=== PATIENT | male | born 1945 | race Caucasian/White ===

== ENCOUNTER → 2016-06-15 | Outpatient (CLI) | payer MEDICARE, MEDICAID ==
[~2016-06-15] MED LIST: ASPI81 PO; DOXY100C PO; IBUP-2070 PO; INSLAN SQ; LEVO500 PO; LINE600 PO; LISI40TA4 PO; METF850T2 PO; PERCT PO; SIMV-260 PO; TEST75GE TP
[2016-06-15 13:52] VITALS: BP 152/60
== END | disposition home or self-care (01) ==
LOC: HBOWC 13:08
PROVIDERS: ATTEND Emergency Medicine
DX: E11.621 Type 2 diabetes mellitus with foot ulcer (principal); L97.519 Non-pressure chronic ulcer of other part of right foot with unspecified severity; M85.871 Other specified disorders of bone density and structure, right ankle and foot; M54.5 Low back pain; M79.641 Pain in right hand; M25.571 Pain in right ankle and joints of right foot; Z87.81 Personal history of (healed) traumatic fracture
CPT/HCPCS: 87070; 87205

== ENCOUNTER → 2016-06-23 | Outpatient (CLI) | payer MEDICARE, MEDICAID ==
[2016-06-23 09:23] VITALS: BP 144/64
== END | disposition home or self-care (01) ==
LOC: HBOWC 09:12
PROVIDERS: ATTEND Emergency Medicine
DX: E11.621 Type 2 diabetes mellitus with foot ulcer (principal); L97.511 Non-pressure chronic ulcer of other part of right foot limited to breakdown of skin; E11.42 Type 2 diabetes mellitus with diabetic polyneuropathy; L84 Corns and callosities; Q66.7 Congenital pes cavus; M20.42 Other hammer toe(s) (acquired), left foot; M20.41 Other hammer toe(s) (acquired), right foot
CPT/HCPCS: 87070; 87147; 87205; 97597

== ENCOUNTER → 2016-07-07 | Outpatient (CLI) | payer MEDICARE, MEDICAID ==
[~2016-07-07] MED LIST changes: -DOXY100C PO
[2016-07-07 13:48] VITALS: BP 162/72
== END | disposition home or self-care (01) ==
LOC: HBOWC 13:16
PROVIDERS: ATTEND Emergency Medicine
DX: E11.621 Type 2 diabetes mellitus with foot ulcer (principal); L97.511 Non-pressure chronic ulcer of other part of right foot limited to breakdown of skin; E11.42 Type 2 diabetes mellitus with diabetic polyneuropathy; M20.42 Other hammer toe(s) (acquired), left foot; M20.41 Other hammer toe(s) (acquired), right foot; L84 Corns and callosities
CPT/HCPCS: 97597

== ENCOUNTER → 2016-07-20 | Outpatient (CLI) | payer MEDICARE, MEDICAID ==
[~2016-07-20] MED LIST changes: +IBUPROFEN 200 MG TABLET PO ONE; +LIDOCAINE HCL 2% 5 ML JELLY TP ONE
[2016-07-20 14:45] VITALS: BP 139/64
== END | disposition home or self-care (01) ==
LOC: HBOWC 14:14
PROVIDERS: ATTEND Emergency Medicine
DX: E11.621 Type 2 diabetes mellitus with foot ulcer (principal); L97.511 Non-pressure chronic ulcer of other part of right foot limited to breakdown of skin; L84 Corns and callosities; M20.42 Other hammer toe(s) (acquired), left foot; M20.41 Other hammer toe(s) (acquired), right foot; E11.42 Type 2 diabetes mellitus with diabetic polyneuropathy; Q66.7 Congenital pes cavus
CPT/HCPCS: 97597

== ENCOUNTER → 2016-08-03 | Outpatient (CLI) | payer MEDICARE, MEDICAID ==
[~2016-08-03] MED LIST changes: -ASPI81 PO; -IBUPROFEN 200 MG TABLET PO ONE; -LIDOCAINE HCL 2% 5 ML JELLY TP ONE; -LINE600 PO; -SIMV-260 PO; +SIMV20 PO
[2016-08-03 14:44] VITALS: BP 145/64
== END | disposition home or self-care (01) ==
LOC: HBOWC 14:08
PROVIDERS: ATTEND Emergency Medicine
DX: E11.621 Type 2 diabetes mellitus with foot ulcer (principal); L97.511 Non-pressure chronic ulcer of other part of right foot limited to breakdown of skin; L84 Corns and callosities; M20.42 Other hammer toe(s) (acquired), left foot; M20.41 Other hammer toe(s) (acquired), right foot; E11.42 Type 2 diabetes mellitus with diabetic polyneuropathy
CPT/HCPCS: 87070; 87205; 97597

== ENCOUNTER → 2016-08-18 | Outpatient (CLI) | payer MEDICARE, MEDICAID ==
[2016-08-18 14:26] VITALS: BP 155/66
== END | disposition home or self-care (01) ==
LOC: HBOWC 14:04
PROVIDERS: ATTEND Emergency Medicine Undersea and Hyperbaric Medicine
DX: E11.621 Type 2 diabetes mellitus with foot ulcer (principal); L97.511 Non-pressure chronic ulcer of other part of right foot limited to breakdown of skin; E11.42 Type 2 diabetes mellitus with diabetic polyneuropathy; L84 Corns and callosities; M20.42 Other hammer toe(s) (acquired), left foot; M20.41 Other hammer toe(s) (acquired), right foot; Q66.7 Congenital pes cavus
CPT/HCPCS: 97597

== ENCOUNTER → 2016-09-01 | Outpatient (CLI) | payer MEDICARE, MEDICAID ==
[2016-09-01 14:21] VITALS: BP 138/56
== END | disposition home or self-care (01) ==
LOC: HBOWC 14:08
PROVIDERS: ATTEND Emergency Medicine
DX: E11.621 Type 2 diabetes mellitus with foot ulcer (principal); L97.511 Non-pressure chronic ulcer of other part of right foot limited to breakdown of skin; M20.42 Other hammer toe(s) (acquired), left foot; M20.41 Other hammer toe(s) (acquired), right foot; E11.40 Type 2 diabetes mellitus with diabetic neuropathy, unspecified; L84 Corns and callosities; Q66.7 Congenital pes cavus
CPT/HCPCS: 97597

== ENCOUNTER → 2016-09-18 | Outpatient (CLI) | payer MEDICARE, MEDICAID ==
[2016-09-18 08:13] VITALS: BP 154/71
== END | disposition home or self-care (01) ==
LOC: HBOWC 08:05
PROVIDERS: ATTEND Emergency Medicine
DX: E11.621 Type 2 diabetes mellitus with foot ulcer (principal); L97.511 Non-pressure chronic ulcer of other part of right foot limited to breakdown of skin; L84 Corns and callosities; M19.042 Primary osteoarthritis, left hand; M19.041 Primary osteoarthritis, right hand; E11.42 Type 2 diabetes mellitus with diabetic polyneuropathy; B35.1 Tinea unguium
CPT/HCPCS: 87070; 87205; 97597

== ENCOUNTER → 2016-09-18 | Outpatient (CLI) | payer MEDICARE, MEDICAID ==
[~2016-09-18] MED LIST changes: +LINE600 PO; +SIMV-260 PO; -SIMV20 PO
== END | disposition home or self-care (01) ==
LOC: RADPV 10:24
PROVIDERS: ATTEND Specialist
DX: M47.812 Spondylosis without myelopathy or radiculopathy, cervical region (principal); M43.22 Fusion of spine, cervical region; M25.78 Osteophyte, vertebrae; M12.88 Other specific arthropathies, not elsewhere classified, other specified site; M51.34 Other intervertebral disc degeneration, thoracic region; M47.814 Spondylosis without myelopathy or radiculopathy, thoracic region; M41.84 Other forms of scoliosis, thoracic region; M19.042 Primary osteoarthritis, left hand; M19.041 Primary osteoarthritis, right hand; M85.842 Other specified disorders of bone density and structure, left hand; M85.841 Other specified disorders of bone density and structure, right hand; M41.86 Other forms of scoliosis, lumbar region; M47.816 Spondylosis without myelopathy or radiculopathy, lumbar region
CPT/HCPCS: 72040; 72072; 72100

== ENCOUNTER → 2016-10-02 | Outpatient (CLI) | payer MEDICARE, MEDICAID ==
[2016-10-02 13:59] VITALS: BP 125/63
== END | disposition home or self-care (01) ==
LOC: HBOWC 13:32
PROVIDERS: ATTEND Emergency Medicine
DX: E11.622 Type 2 diabetes mellitus with other skin ulcer (principal); L97.511 Non-pressure chronic ulcer of other part of right foot limited to breakdown of skin; L85.9 Epidermal thickening, unspecified; Q66.7 Congenital pes cavus; M20.42 Other hammer toe(s) (acquired), left foot; M20.41 Other hammer toe(s) (acquired), right foot; L84 Corns and callosities; B35.1 Tinea unguium; M79.2 Neuralgia and neuritis, unspecified; M19.042 Primary osteoarthritis, left hand; M19.041 Primary osteoarthritis, right hand; E11.42 Type 2 diabetes mellitus with diabetic polyneuropathy; Z91.19 Patient's noncompliance with other medical treatment and regimen
CPT/HCPCS: 97597

== ENCOUNTER → 2016-10-16 | Outpatient (CLI) | payer MEDICARE, MEDICAID ==
[2016-10-16 13:51] VITALS: BP 156/64
== END | disposition home or self-care (01) ==
LOC: HBOWC 12:50
PROVIDERS: ATTEND Emergency Medicine
DX: E11.621 Type 2 diabetes mellitus with foot ulcer (principal); L97.511 Non-pressure chronic ulcer of other part of right foot limited to breakdown of skin; E11.42 Type 2 diabetes mellitus with diabetic polyneuropathy; M19.072 Primary osteoarthritis, left ankle and foot; M19.071 Primary osteoarthritis, right ankle and foot; B35.1 Tinea unguium; L84 Corns and callosities
CPT/HCPCS: 87070; 87205; 97597

== ENCOUNTER → 2016-10-30 | Outpatient (CLI) | payer MEDICARE, MEDICAID ==
[~2016-10-30] MED LIST changes: -LEVO500 PO; +LIDOCAINE HCL 2% 5 ML JELLY TP ONE
[2016-10-30 14:02] VITALS: BP 132/56
== END | disposition home or self-care (01) ==
LOC: HBOWC 13:47
PROVIDERS: ATTEND Emergency Medicine Undersea and Hyperbaric Medicine
DX: E11.621 Type 2 diabetes mellitus with foot ulcer (principal); L97.511 Non-pressure chronic ulcer of other part of right foot limited to breakdown of skin; M79.2 Neuralgia and neuritis, unspecified; L84 Corns and callosities; M19.072 Primary osteoarthritis, left ankle and foot; M19.071 Primary osteoarthritis, right ankle and foot; E11.42 Type 2 diabetes mellitus with diabetic polyneuropathy; M19.042 Primary osteoarthritis, left hand; M19.041 Primary osteoarthritis, right hand; Q66.7 Congenital pes cavus; B35.1 Tinea unguium
CPT/HCPCS: 97597

== ENCOUNTER → 2016-11-15 | Outpatient (CLI) | payer MEDICARE, MEDICAID ==
[~2016-11-15] MED LIST changes: -LIDOCAINE HCL 2% 5 ML JELLY TP ONE
[2016-11-15 14:05] VITALS: BP 109/50
== END | disposition home or self-care (01) ==
LOC: HBOWC 13:36
PROVIDERS: ATTEND Emergency Medicine
DX: E11.621 Type 2 diabetes mellitus with foot ulcer (principal); L97.519 Non-pressure chronic ulcer of other part of right foot with unspecified severity; M20.41 Other hammer toe(s) (acquired), right foot
CPT/HCPCS: 87070; 87205

== ENCOUNTER → 2016-11-29 | Outpatient (CLI) | payer MEDICARE, MEDICAID ==
[~2016-11-29] MED LIST changes: +CIPR-278 PO; +LIDOCAINE HCL 2% 5 ML JELLY TP ONE; -LINE600 PO; +NYSTATIN 15 GM POWDER BOTTLE TP ONE
[2016-11-29 15:01] VITALS: BP 149/63
== END | disposition home or self-care (01) ==
LOC: HBOWC 13:51
PROVIDERS: ATTEND Emergency Medicine
DX: E11.621 Type 2 diabetes mellitus with foot ulcer (principal); L97.511 Non-pressure chronic ulcer of other part of right foot limited to breakdown of skin; E11.42 Type 2 diabetes mellitus with diabetic polyneuropathy; M19.042 Primary osteoarthritis, left hand; M19.041 Primary osteoarthritis, right hand; M19.071 Primary osteoarthritis, right ankle and foot; M19.072 Primary osteoarthritis, left ankle and foot; L84 Corns and callosities; B35.1 Tinea unguium
CPT/HCPCS: 97597

== ENCOUNTER → 2016-12-15 | Outpatient (CLI) | payer MEDICARE, MEDICAID ==
[~2016-12-15] MED LIST changes: -LIDOCAINE HCL 2% 5 ML JELLY TP ONE; -NYSTATIN 15 GM POWDER BOTTLE TP ONE
[2016-12-15 14:07] VITALS: BP 154/63
== END | disposition home or self-care (01) ==
LOC: HBOWC 13:33
PROVIDERS: ATTEND Emergency Medicine
DX: E11.621 Type 2 diabetes mellitus with foot ulcer (principal); L97.511 Non-pressure chronic ulcer of other part of right foot limited to breakdown of skin; E11.42 Type 2 diabetes mellitus with diabetic polyneuropathy; M19.072 Primary osteoarthritis, left ankle and foot; L84 Corns and callosities; B35.1 Tinea unguium
CPT/HCPCS: 97597

== ENCOUNTER → 2016-12-20 | Outpatient (CLI) | payer MEDICARE, MEDICAID ==
[2016-12-20 13:13] LABS: BASOPHILS # (AUTO) 0.02 K/uL (0.00-0.20); BASOPHILS % (AUTO) 0.3 % (0.0-2.0); EOSINOPHILS # (AUTO) 0.15 K/uL (0.00-0.70); EOSINOPHILS % (AUTO) 1.81 % (1.0-6.0); HEMATOCRIT 38.4 % (41-53); HEMOGLOBIN 12.4 g/dL (13.5-17.5); LYMPHOCYTES % (AUTO) 11.6 % (22.0-44.0); MEAN CORPUSCULAR HEMOGLOBIN 28.1 pg (26.0-34.0); MEAN CORPUSCULAR HGB CONC 32.2 G/dL (31.0-37.0); MEAN CORPUSCULAR VOLUME 87 fL (80-100); MONOCYTES # (AUTO) 0.5 K/uL (0.1-1.0); MONOCYTES % (AUTO) 6.4 % (2.0-9.0); NEUTROPHILS # (AUTO) 6.6 K/uL (1.8-7.7); NEUTROPHILS % (AUTO) 79.9 % (40.0-70.0); PLATELET COUNT (AUTO) 143 K/uL (150-450); RED BLOOD CELL COUNT(AUTO) 4.41 MIL/uL (4.50-5.90); RED CELL DISTRIBUTION WIDTH 15.3 % (11.5-14.5); WHITE BLOOD COUNT (AUTO) 8.2 K/uL (4.5-11.0)
[2016-12-20 13:24] LABS: ALBUMIN 3.6 g/dL (3.4-5.0); ANION GAP 6 mmol/L (8-16); CARBON DIOXIDE 30 mmol/L (22-29); CHLORIDE 102 mmol/L (98-107); CREATININE 1.06 mg/dL (0.60-1.30); GLOMERULAR FILTR. RATE CALC > 60 mL/min (>60); POTASSIUM 5.1 mmol/L (3.5-5.1); SODIUM SERUM 138 mmol/L (136-145); UREA NITROGEN, BLOOD 14 mg/dL (7-18)
[2016-12-20 14:02] LABS: HEMOGLOBIN A1C 7.6 % (4.5-6.2)
[2016-12-20 14:32] LABS: ERYTHROCYTE SEDIMENTATION RATE 22 MM/HR (0-15)
== END | disposition home or self-care (01) ==
LOC: LABPV 11:48
PROVIDERS: ATTEND Emergency Medicine
DX: E11.621 Type 2 diabetes mellitus with foot ulcer (principal); L97.519 Non-pressure chronic ulcer of other part of right foot with unspecified severity
CPT/HCPCS: 83036; 85651; 86140

== ENCOUNTER → 2016-12-29 | Outpatient (CLI) | payer MEDICARE, MEDICAID ==
[~2016-12-29] MED LIST changes: +CEPH500 PO
[2016-12-29 13:54] VITALS: BP 147/65
== END | disposition home or self-care (01) ==
LOC: HBOWC 13:14
PROVIDERS: ATTEND Emergency Medicine
DX: E11.621 Type 2 diabetes mellitus with foot ulcer (principal); L97.511 Non-pressure chronic ulcer of other part of right foot limited to breakdown of skin; E11.42 Type 2 diabetes mellitus with diabetic polyneuropathy; M20.41 Other hammer toe(s) (acquired), right foot; L84 Corns and callosities; M19.072 Primary osteoarthritis, left ankle and foot; M19.071 Primary osteoarthritis, right ankle and foot; B35.1 Tinea unguium
CPT/HCPCS: 87070; 87205; 97597

== ENCOUNTER → 2016-12-29 | Outpatient (CLI) | payer MEDICARE, MEDICAID ==
[~2016-12-29] MED LIST changes: -CEPH500 PO; +GADOBUTROL 1 MMOL/ML 10 ML VIAL IVP ONE
== END | disposition home or self-care (01) ==
LOC: RADMN 10:00
PROVIDERS: ATTEND Emergency Medicine
DX: E11.621 Type 2 diabetes mellitus with foot ulcer (principal); L97.319 Non-pressure chronic ulcer of right ankle with unspecified severity; R60.0 Localized edema; S93.411D Sprain of calcaneofibular ligament of right ankle, subsequent encounter; M21.961 Unspecified acquired deformity of right lower leg; M25.771 Osteophyte, right ankle; M65.871 Other synovitis and tenosynovitis, right ankle and foot; M62.571 Muscle wasting and atrophy, not elsewhere classified, right ankle and foot; M76.61 Achilles tendinitis, right leg; M77.31 Calcaneal spur, right foot; L97.519 Non-pressure chronic ulcer of other part of right foot with unspecified severity; M25.474 Effusion, right foot; M20.41 Other hammer toe(s) (acquired), right foot; X58.XXXD Exposure to other specified factors, subsequent encounter; S93.331D Other subluxation of right foot, subsequent encounter
CPT/HCPCS: 73720; 73723; A9585

== ENCOUNTER → 2017-01-16 | Outpatient (CLI) | payer MEDICARE, MEDICAID ==
[~2017-01-16] MED LIST changes: +CEPH500 PO; -CIPR-278 PO; -GADOBUTROL 1 MMOL/ML 10 ML VIAL IVP ONE
[2017-01-16 13:50] VITALS: BP 141/52
== END | disposition home or self-care (01) ==
LOC: HBOWC 13:19
PROVIDERS: ATTEND Emergency Medicine Undersea and Hyperbaric Medicine
DX: E11.621 Type 2 diabetes mellitus with foot ulcer (principal); L97.511 Non-pressure chronic ulcer of other part of right foot limited to breakdown of skin; L84 Corns and callosities; M20.41 Other hammer toe(s) (acquired), right foot; E11.42 Type 2 diabetes mellitus with diabetic polyneuropathy; M19.072 Primary osteoarthritis, left ankle and foot; M19.071 Primary osteoarthritis, right ankle and foot; B35.1 Tinea unguium
CPT/HCPCS: 97597

== ENCOUNTER → 2017-02-06 | Outpatient (CLI) | payer MEDICARE, MEDICAID ==
[~2017-02-06] MED LIST changes: +LIDOCAINE HCL 2% 5 ML JELLY TP ONE
[2017-02-06 14:15] VITALS: BP 153/82
== END | disposition home or self-care (01) ==
LOC: HBOWC 13:39
PROVIDERS: ATTEND Emergency Medicine
DX: E11.621 Type 2 diabetes mellitus with foot ulcer (principal); L97.512 Non-pressure chronic ulcer of other part of right foot with fat layer exposed; E11.42 Type 2 diabetes mellitus with diabetic polyneuropathy; E11.69 Type 2 diabetes mellitus with other specified complication; M86.671 Other chronic osteomyelitis, right ankle and foot; L84 Corns and callosities; M19.072 Primary osteoarthritis, left ankle and foot; M19.071 Primary osteoarthritis, right ankle and foot; M20.5X1 Other deformities of toe(s) (acquired), right foot
CPT/HCPCS: 11042; 85651; 86140

== ENCOUNTER → 2017-02-20 | Outpatient (CLI) | payer MEDICARE, MEDICAID ==
[2017-02-20 11:05] VITALS: BP 141/75
== END | disposition home or self-care (01) ==
LOC: HBOWC 10:49
PROVIDERS: ATTEND Emergency Medicine
DX: E11.621 Type 2 diabetes mellitus with foot ulcer (principal); L97.511 Non-pressure chronic ulcer of other part of right foot limited to breakdown of skin; E11.69 Type 2 diabetes mellitus with other specified complication; M86.8X7 Other osteomyelitis, ankle and foot; M20.5X1 Other deformities of toe(s) (acquired), right foot; E11.42 Type 2 diabetes mellitus with diabetic polyneuropathy; B35.1 Tinea unguium; L84 Corns and callosities
CPT/HCPCS: 11042

== ENCOUNTER → 2017-03-09 | Outpatient (CLI) | payer MEDICARE, MEDICAID ==
[2017-03-09 11:50] VITALS: BP 152/71
== END | disposition home or self-care (01) ==
LOC: HBOWC 11:39
PROVIDERS: ATTEND Emergency Medicine
DX: E11.621 Type 2 diabetes mellitus with foot ulcer (principal); L97.512 Non-pressure chronic ulcer of other part of right foot with fat layer exposed; E11.42 Type 2 diabetes mellitus with diabetic polyneuropathy; E11.69 Type 2 diabetes mellitus with other specified complication; M86.671 Other chronic osteomyelitis, right ankle and foot; M19.072 Primary osteoarthritis, left ankle and foot; M19.071 Primary osteoarthritis, right ankle and foot; L84 Corns and callosities; M20.5X1 Other deformities of toe(s) (acquired), right foot
CPT/HCPCS: 11042